=== PATIENT | female | born 1985 | race Caucasian/White ===

== ENCOUNTER 2016-08-13 12:52 | Emergency (ER) | payer OTHER ==
[~2016-08-13] VITALS: Ht 160 cm; Wt 75.0 kg
[~2016-08-13 12:52] MED LIST: CYCL-36 PO; LORTA10 PO
[2016-08-13 12:58] VITALS: BP 128/74; PULSE 91; RESP 18; TEMP 99.5; O2SAT 100
--- NOTE | 2016-08-13 13:02 | PD ---
Physical Exam Date Seen by Provider: Aug 13, 2016 Time Seen by Provider: 13:00 Narrative 30 year old female presents to the emergency department for left chest pain for approximately 3 weeks. She states her primary care physician put her on Levaquin on Tuesday. She also started with diffuse abdominal pain and dizziness today. Patient awaiting bed placement. Data Data Last Documented VS Vital Signs Date Time Temp Pulse Resp B/P Pulse Ox O2 Delivery O2 Flow Rate FiO2 08/13/16 12:58 99.5 91 18 128/74 100 Room Air MDM Supervised Visit with MONI: Yari Alicea Aug 13, 2016 13:02
[2016-08-13] MEDS ORDERED: BUSP5TAB PO (13:16)
[2016-08-13] MEDS ORDERED: LEVA500T PO (13:16)
[2016-08-13] MEDS ORDERED: HYDR-3534 PO (13:16)
[2016-08-13] MEDS ORDERED: MONT10TA2 PO (13:16)
[2016-08-13] MEDS ORDERED: CLON0.5T PO (13:16)
--- NOTE | 2016-08-13 13:49 | RADRPT ---
EXAM DATE/TIME: 08/13/2016 13:33 [facility] COMPARISON: CHEST SINGLE AP, July 13, 2012, 12:38. INDICATIONS : Chest pain. MEDICAL HISTORY : Asthma SURGICAL HISTORY : None. ENCOUNTER: Initial ACUITY: 1 day PAIN SCORE: 6/10 LOCATION: Bilateral chest FINDINGS: A single view of the chest demonstrates the lungs to be symmetrically aerated without evidence of mas s, infiltrate or effusion. The cardiomediastinal contours are unremarkable. Scoliosis is noted. CONCLUSION: No acute disease. Tristan Goldman MD FACR on August 13, 2016 at 13:48 Board Certified Radiologist. This report was verified electronically.
--- NOTE | 2016-08-13 13:52 | PD ---
HPI Chief Complaint: Chest Pain Time Seen by Provider: 13:25 Travel History International Travel<30 days: No Contact w/Intl Traveler<30days: No Traveled to known affect area: No History of Present Illness HPI Healthy 30-year-old female here with complaint of chest pain. Patient states that she has had flulike symptoms with nasal congestion, postnasal drip and slight cough for the last week. She was prescribed Levaquin by her primary which has given her some epigastric abdominal discomfort and nausea. She's been on this for the last 3 days. She notices some left-sided chest pain that is made worse with movement, point tenderness to palpation. She does note that she recently took up running and has been running over the bridge. PFSH Past Medical History Asthma: Yes Blood Disorders: No Anxiety: Yes Cancer: No Cardiovascular Problems: No Chemotherapy: No Diabetes: No Diminished Hearing: No Endocrine: Yes Gastrointestinal Disorders: No Genitourinary: No Immune Disorder: No Implanted Vascular Access Dvce: No Musculoskeletal: Yes (SCOLIOSIS) Neurologic: No Psychiatric: No Reproductive: Yes Respiratory: Yes Radiation Therapy: No Thyroid Disease: Yes (NODULE ON THYROID, HAS ENOCRINOLOGY APT.) Influenza Vaccination: No ?: Unknown LMP: 07/13/16 : 0 Ovarian Cysts: Yes Past Surgical History Gynecologic Surgery: Yes (RIGHT BREAST BIOPSY (BENIGN)) Neurologic Surgery: Yes (Anterior cervical fusion 07/13/2012) Other Surgery: Yes (CYST REMOVED FROM RIGHT BREAST) Social History Alcohol Use: Yes (rarely) Tobacco Use: No Substance Use: No (1 time last week, marijuana) Allergies-Medications (Allergen,Severity, Reaction): Coded Allergies: Amoxicillin (Verified Allergy, Severe, 08/13/16) Ceclor (Verified Allergy, Severe, 08/13/16) Keflex (Verified Allergy, Severe, 08/13/16) Penicillin (Verified Allergy, Severe, 08/13/16) Reported Meds & Prescriptions Reported Meds & Active Scripts Active Reported Levaquin (Levofloxacin) 500 Mg Tab 500 Mg PO DAILY Clonazepam 0.5 Mg Tab 0.5 Mg PO BID Lortab (Hydrocodone-Acetaminophen) 7.5-325 Mg Tab 1 Tab PO Q4H PRN Singulair (Montelukast Sodium) 10 Mg Tab 10 Mg PO HS Buspirone (Buspirone HCl) 5 Mg Tab 5 Mg PO BID Review of Systems Except as stated in HPI: all other systems reviewed are Neg Physical Exam Narrative GENERAL: Well-appearing female in no acute distress SKIN: Focused skin assessment warm/dry. HEAD: Atraumatic. Normocephalic. EYES: Pupils equal and round. No scleral icterus. No injection or drainage. ENT: No nasal bleeding or discharge. Mucous membranes pink and moist. Clear bilaterally. NECK: Supple CARDIOVASCULAR: Regular rate and rhythm. No murmur appreciated. Reproducible tenderness to palpation of the left sternal margin RESPIRATORY: No accessory muscle use. Clear to auscultation. Breath sounds equal bilaterally. GASTROINTESTINAL: Abdomen soft, non-tender, nondistended MUSCULOSKELETAL: No obvious deformities. No edema. NEUROLOGICAL: Awake and alert. Normal speech. PSYCHIATRIC: Appropriate mood and affect; insight and judgment normal. Data Data Last Documented VS Vital Signs Date Time Temp Pulse Resp B/P Pulse Ox O2 Delivery O2 Flow Rate FiO2 08/13/16 12:58 99.5 91 18 128/74 100 Room Air Orders Electrocardiogram (08/13/16 ) Chest, Single Ap (08/13/16 ) [facility] Medical Decision Making Medical Screen Exam Complete: Yes Emergency Medical Condition: Yes Medical Record Reviewed: Yes Differential Diagnosis 30-year-old female here with complaint of chest pain. Exam is consistent with costochondritis, musculoskeletal etiology with point reproducible tenderness palpation of the chest wall. Likely made worse from her recently picking up running/exercise in addition to her recent cough. Less likely ACS, PE, dissection, GERD. Narrative Course Lead EKG shows sinus rhythm without notable ST abnormalities, normal intervals. Chest x-ray clear. Patient given Toradol for pain. Diagnosis Primary Impression: Costochondritis Referrals: Primary Care Physician as needed Patient Instructions: Costochondritis (ED), General Instructions Additional Instructions: Tylenol, ibuprofen, Aleve as needed for pain. Med/Other Pt SpecificInfo: No Change to Meds Disposition: 01 DISCHARGE HOME Condition: Stable Keturah Jackson MD Aug 13, 2016 13:52
[2016-08-13] MEDS ORDERED: KETOROLAC TROMETHAMINE 60 MG/2 ML (IM) VIAL IM ONE (14:00)
--- NOTE | 2016-08-14 14:40 | EKG ---
Date Performed: 08/13/2016 Time Performed: 13:47:23 PTAGE: 30 years EKG: Sinus rhythm Compared to prior tracing no significant change NORMAL ECG NO PREVIOUS TRACING DOCTOR: Caden Gandhi Interpretating Date/Time 08/14/2016 14:37:58
== END 2016-08-13 14:09 | disposition home or self-care (01) ==
LOC: NEPD 12:52
DX: M94.0 Chondrocostal junction syndrome [Tietze] (principal); R05 Cough; R11.0 Nausea; J45.909 Unspecified asthma, uncomplicated
CPT/HCPCS: 71010; 93005; 96372; 99285; J1885